=== PATIENT | female | born 1940 | race Caucasian/White ===

== ENCOUNTER 2018-06-27 09:25 | Emergency (ER) | payer MEDICARE, BC ==
[2018-06-27 11:15] VITALS: BP 118/64
--- NOTE | 2018-06-27 11:32 | UC ---
HPI Wound/Suture Re-check - HPI Summary HPI Summary: abrasion left lower leg x 3 days ago here for dressing change, mild erythema, swelling mild bleeding, no discharge, no significant pain - History Of Current Complaint Chief Complaint: UCWounds Stated Complaint: DRESSING CHANGE - DONE HERE Time Seen by Provider: 06/27/18 11:16 Hx Obtained From: Patient Hx Last Menstrual Period: n/a Onset/Duration: Sudden Onset, Lasting Days - 3, Still Present Severity: Moderate Pain Intensity: 0 - Allergies/Home Medications Allergies/Adverse Reactions: Allergies Allergy/AdvReac Type Severity Reaction Status Date / Time walnut AdvReac Rash Verified 06/27/18 11:07 Home Medications: Home Medications Melatonin 10 mg PO BEDTIME 06/27/18 [History Confirmed 06/27/18] PMH/Surg Hx/FS Hx/Imm Hx - Additional Past Medical History Additional PMH: Parkinson's; rib fx [ End ] Endocrine History: Hypothyroidism Cardiovascular History: Cardiac Disease, Hypertension - Surgical History Surgical History: Yes Surgery Procedure, Year, and Place: tubal ligation, b/l cataracts. tonsillectomy; cardiac stent. vaginal hysterectomy 01/24/15 [facility]. trigger finger 2010 sy[facility] - Family History Known Family History: Positive: Hypertension - Social History Alcohol Use: None Substance Use Type: None Smoking Status (MU): Never Smoked Tobacco - Immunization History Most Recent Tetanus Shot: 2012 Review of Systems All Other Systems Reviewed And Are Negative: Yes Constitutional: Positive: Negative Skin: Positive: Negative Eyes: Positive: Negative ENT: Positive: Negative Respiratory: Positive: Negative Cardiovascular: Positive: Negative Is Patient Immunocompromised?: No Physical Exam Triage Information Reviewed: Yes Appearance: No Pain Distress, Well-Nourished, Other: - parkinson's movements Vital Signs: Initial Vital Signs Temp 97 F 06/27/18 11:11 Pulse 85 06/27/18 11:11 Resp 20 06/27/18 11:11 BP 118/64 06/27/18 11:11 Pulse Ox 96 06/27/18 11:11 Vital Signs Reviewed: Yes Eye Exam: Normal Eyes: Positive: Conjunctiva Clear ENT: Positive: Normal ENT inspection, Hearing grossly normal, Pharynx normal Neck: Positive: Supple, Nontender, No Lymphadenopathy Respiratory: Positive: Chest non-tender, Lungs clear, Normal breath sounds Cardiovascular: Positive: RRR, No Murmur, Pulses Normal Skin: Positive: Other - large abrasion left lower leg linear 10 cm x 2 cm , minimal bleeding, mild swelling, mild erythema, dressing was changed Course/Dx - Diagnosis Provider Diagnosis: Abrasion, leg w/o infection Discharge - Sign-Out/Discharge Documenting (check all that apply): Patient Departure All imaging exams completed and their final reports reviewed: No Studies - Discharge Plan Condition: Stable Disposition: HOME Prescriptions: Amoxicillin/Clavulanate TAB* [Augmentin TAB 875*] 875 mg PO BID #14 tab Patient Education Materials: Acute Wound Care (ED) Referrals: Alen Berumen DO [Primary Care Provider] - 7 Days - Billing Disposition and Condition Condition: STABLE Disposition: Home
== END 2018-06-27 11:32 | disposition home or self-care (01) ==
LOC: UCCORT 09:25
DX: S80.812D Abrasion, left lower leg, subsequent encounter (principal); G20 Parkinson's disease; I10 Essential (primary) hypertension; Z91.018 Allergy to other foods; X58.XXXD Exposure to other specified factors, subsequent encounter
CPT/HCPCS: 99212; G0463

== ENCOUNTER 2018-09-29 20:23 | Emergency (ER) | payer MEDICARE, BC ==
--- OUTSIDE RECORDS SUMMARY | 2018-09-29 20:33 | XMS REPORT | Continuity of Care Document ---
:1940 External Reference #:[id number] Author Name Rere Finch Care Team Providers Name Role Phone Alen Berumen, Care Team Information [employer] Unavailable Alen Berumen DO Primary Care Physician Unavailable Payers Date Identification Numbers Payment Provider Subscriber Policy Number: [id number] Medicare Maria Esther Love PayID: [id number] [address] [place] [address] Effective: 2013 Policy Number: [id number] [facility] Maria Esther Love Group Number: [id number] [address] [address] PayID: [id number] LEONILA Meyer [id number] Effective: 2006 Policy Number: [id number] Medicare Maria Esther Love Expires: 2018 PayID: [id number] [address] [place] [address] Advance Directives Description No Information Available Problems Active Problems Provider Date Coronary arteriosclerosis Benitez Christenesn MD Onset: 04/09/2014 Coronary arteriosclerosis Marti Griffin ANP Onset: 08/07/2014 Chest pain Marti Griffin, ANP Onset: 08/07/2014 Low blood pressure Marti Griffin, ANP Onset: 08/07/2014 Mixed hyperlipidemia Marti Griffin, ANP Onset: 08/07/2014 Essential tremor Marti Griffin ANP Onset: 08/25/2014 Low back pain Consuelo Guzman MD Onset: 09/13/2014 Parkinson's disease Consuelo Guzman MD Onset: 09/13/2014 Walking disability Consuelo Guzman MD Onset: 09/13/2014 Dyspnea Marti Griffin ANP Onset: 10/16/2014 Sleep dysfunction with sleep stage disturbance Marti Griffin ANP Onset: Family History Date Family Member(s) Observation Comments General Cancer General Heart Disease Father Oral Cancer Mother Cancer LEUKEMIA Maternal Aunts Tremors Social History Type Date Description Comments Sex Unknown Education Highest level completed, Bachelor's Degree Marital Status Lives With Spouse Diet Healthy, Well Balanced 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 Slow with all ADL's ADL's/IADL's Independent with all IADL's Drive Patient drives Tobacco Use Start: Unknown Never Smoked Cigarettes ETOH Use Denies alcohol use Tobacco Use Start: Unknown Patient denies history of smoking Recreational Drug Use Never Used Drugs Smoking Status Reviewed: 09/11/18 Patient denies history of smoking Allergies, Adverse Reactions, Alerts Description No Known Drug Allergies Medications Active Medications SIG Qnty Indications Ordering Provider Date Atorvastatin Calcium take 1 tablet at 90tabs Gabriella Beyer 05/04/2018 40mg bedtime Donato, MSN, Tablets 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 Amlodipine Besylate take 1 tablet by 30tabs Benitez Christensen MD 12/02/2015 2.5mg mouth once daily Tablets Sertraline HCL 1 by mouth every 30tabs Unknown 100mg day Tablets Aspirin Ec 1 po qd Unknown 81mg Tablets DR Torres 1 tab sl every 5 25tabs Benitez Christensen MD 0.4mg Tablets min x3 chest Sub pain Rytary 10 po daily Unknown 48.75-195mg Capsules ER Omeprazole 1 by mouth every Unknown 20mg Capsules day DR Gee 3 by mouth every Unknown 23.75-95mg day Capsules ER Wixela Inhub inhale one puff Unknown by mouth twice a 100-50mcg/Dose Aerosol day rinse mouth after use Melatonin ER 1at bedtime and Unknown 10mg Tablets take 2nd 30mins ER later if needed Gabapentin 1 PO bid Unknown 100mg Capsules History Medications Lipitor 1 by mouth 90tabs Beyer, Gabriella 05/06/2017 - 40mg Tablets every night at [facility], 05/04/2018 bedtime 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 Plavix 1 by mouth 30tabs Benitez Christensen MD 12/10/2015 - 75mg Tablets every day 01/01/2016 Nitro-Dur apply one to 30units Benitez Christensen MD 11/25/2015 - 0.2mg/HR skin every in 12/02/2015 Patches 24HR the morning remove every at night (12 hrs on, 12 hrs off) Prilosec 1 by mouth 60caps R07.9 Benitez Christensen MD 03/19/2015 - 20mg Capsules DR twice a day Unknown Spiriva Handihaler one puff daily 1caps 496 Benitez Christensen MD 10/29/2014 - 18mcg Unknown Capsules Omeprazole 1 by mouth 30caps 786.50 Benitez Christensen MD 08/06/2014 - 20mg Capsules every day Unknown Toprol XL 1 tab p.o. 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 Advair Diskus inhale one Unknown - puff by mouth Unknown 100-50mcg/Dose Aerosol twice a day Amantadine HCL 1 by mouth bid Unknown - 100mg Unknown Tablets Pramipexole one half pill Unknown - Dihydrochloride a day Unknown 1mg Tablets Atorvastatin Calcium 1 by mouth Unknown - 40mg every day Unknown Tablets Carbidopa-Levodopa ER 1-4 by mouth Unknown - daily Unknown 25-100mg Tablets ER Immunizations Description No Information Available Vital Signs Date Vital Result Comment 09/11/2018 1:14pm BP Systolic Sitting Right Arm 118 mmHg BP Diastolic Sitting Right Arm 66 mmHg Heart Rate 67 /min Respiratory Rate 16 /min Height 62 inches 5'2" Weight 123.00 lb BMI (Body Mass Index) 22.5 kg/m2 BSA (Body Surface Area) 1.55 m2 [place] body weight in kilograms 50 kg O2 % BldC Oximetry 93 % Ra 03/10/2018 1:07pm BP Systolic Sitting Left Arm 130 mmHg BP Diastolic Sitting Left Arm 82 mmHg Heart Rate 95 /min Respiratory Rate 18 /min Height 62 inches 5'2" Weight 121.00 lb BMI (Body Mass Index) 22.1 kg/m2 BSA (Body Surface Area) 1.54 m2 [place] body weight in kilograms 50 kg O2 % BldC Oximetry 91 % Ora 09/06/2017 1:20pm BP Systolic Sitting Left Arm 110 mmHg BP Diastolic Sitting Left Arm 64 mmHg Heart Rate 95 /min Respiratory Rate 18 /min Height 62 inches 5'2" Weight 115.00 lb BMI (Body Mass Index) 21.0 kg/m2 BSA (Body Surface Area) 1.51 m2 [place] body weight in kilograms 50 kg 03/09/2017 1:50pm BP Systolic Sitting Left Arm 118 mmHg BP Diastolic Sitting Left Arm 68 mmHg Heart Rate 82 /min Respiratory Rate 18 /min Height 62 inches 5'2" Weight 112.00 lb BMI (Body Mass Index) 20.5 kg/m2 BSA (Body Surface Area) 1.49 m2 [place] body weight in kilograms 50 kg 11/03/2016 9:23am BP Systolic Sitting Left Arm 110 mmHg BP Diastolic Sitting Left Arm 68 mmHg Heart Rate 80 /min Respiratory Rate 16 /min Height 62 inches 5'2" Weight 116.00 lb BMI (Body Mass Index) 21.2 kg/m2 BSA (Body Surface Area) 1.52 m2 [place] body weight in kilograms 50 kg 04/13/2016 9:54am BP Systolic Sitting Right Arm 126 mmHg BP Diastolic Sitting Right Arm 78 mmHg Heart Rate 90 /min Respiratory Rate 16 /min Weight 123.00 lb 01/01/2016 11:10am BP Systolic Sitting Left Arm 112 mmHg BP Diastolic Sitting Left Arm 68 mmHg Heart Rate 80 /min Respiratory Rate 16 /min Weight 120.00 lb 12/10/2015 4:32pm BP Systolic 152 mmHg BP Diastolic 82 mmHg Heart Rate 80 /min Respiratory Rate 16 /min Weight 119.38 lb 11/25/2015 3:08pm BP Systolic Lying Down Resting Right Arm 150 mmHg BP Diastolic Lying Down Resting Right Arm 88 mmHg Heart Rate 68 /min Height 63 inches 5'3" Weight 121.00 lb BMI (Body Mass Index) 21.4 kg/m2 BSA (Body Surface Area) 1.56 m2 [place] body weight in kilograms 52 kg 11/14/2015 9:47am BP Systolic Sitting Left Arm 122 mmHg BP Diastolic Sitting Left Arm 76 mmHg Heart Rate 75 /min Height 63 inches 5'3" Weight 123.00 lb BMI (Body Mass Index) 21.8 kg/m2 BSA (Body Surface Area) 1.57 m2 [place] body weight in kilograms 52 kg 05/15/2015 11:01am BP Systolic Sitting Left Arm 118 mmHg BP Diastolic Sitting Left Arm 64 mmHg Heart Rate 69 /min Height 63 inches 5'3" Weight 121.00 lb BMI (Body Mass Index) 21.4 kg/m2 BSA (Body Surface Area) 1.56 m2 03/19/2015 2:12pm BP Systolic Sitting Left Arm 130 mmHg BP Diastolic Sitting Left Arm 62 mmHg Heart Rate 88 /min Respiratory Rate 16 /min Height 63 inches 5'3" Weight 121.00 lb BMI (Body Mass Index) 21.4 kg/m2 BSA (Body Surface Area) 1.56 m2 11/20/2014 2:36pm BP Systolic Sitting Left Arm 122 mmHg BP Diastolic Sitting Left Arm 62 mmHg Heart Rate 100 /min Respiratory Rate 14 /min Height 63 inches 5'3" Weight 120.00 lb BMI (Body Mass Index) 21.3 kg/m2 BSA (Body Surface Area) 1.56 m2 10/29/2014 2:10pm BP Systolic Sitting Right Arm 108 mmHg BP Diastolic Sitting Right Arm 70 mmHg Heart Rate 80 /min Respiratory Rate 16 /min Height 63 inches 5'3" Weight 121.00 lb BMI (Body Mass Index) 21.4 kg/m2 BSA (Body Surface Area) 1.56 m2 10/15/2014 1:27pm BP Systolic Sitting Left Arm 110 mmHg BP Diastolic Sitting Left Arm 58 mmHg Heart Rate 80 /min Respiratory Rate 14 /min Height 63 inches 5'3" Weight 119.00 lb BMI (Body Mass Index) 21.1 kg/m2 BSA (Body Surface Area) 1.55 m2 08/23/2014 1:15pm BP Systolic Sitting Left Arm 118 mmHg BP Diastolic Sitting Left Arm 70 mmHg Heart Rate 76 /min Respiratory Rate 16 /min Height 63 inches 5'3" Weight 123.00 lb BMI (Body Mass Index) 21.8 kg/m2 BSA (Body Surface Area) 1.57 m2 08/09/2014 11:21am BP Systolic Sitting Right Arm 132 mmHg BP Diastolic Sitting Right Arm 72 mmHg Heart Rate 82 /min Respiratory Rate 16 /min Height 63 inches 5'3" Weight 123.00 lb BMI (Body Mass Index) 21.8 kg/m2 BSA (Body Surface Area) 1.57 m2 08/06/2014 2:41pm BP Systolic Sitting Right Arm 130 mmHg BP Diastolic Sitting Right Arm 76 mmHg Heart Rate 84 /min Respiratory Rate 16 /min Height 63 inches 5'3" Weight 124.00 lb BMI (Body Mass Index) 22.0 kg/m2 BSA (Body Surface Area) 1.58 m2 06/04/2014 1:48pm BP Systolic Sitting Right Arm 90 mmHg BP Diastolic Sitting Right Arm 40 mmHg Heart Rate 75 /min Respiratory Rate 22 /min Height 63 inches 5'3" Weight 123.00 lb BMI (Body Mass Index) 21.8 kg/m2 BSA (Body Surface Area) 1.57 m2 04/09/2014 9:59am Heart Rate 78 /min Respiratory Rate 16 /min Height 63 inches 5'3" Weight 121.00 lb BMI (Body Mass Index) 21.4 kg/m2 BSA (Body Surface Area) 1.56 m2 01/08/2014 1:20pm BP Systolic Sitting Right Arm 102 mmHg BP Diastolic Sitting Right Arm 58 mmHg Heart Rate 79 /min Respiratory Rate 16 /min Height 63 inches 5'3" Weight 123.00 lb BMI (Body Mass Index) 21.8 kg/m2 BSA (Body Surface Area) 1.57 m2 Results Test Date Facility Test Result H/L Range Note Order 09/12/2018 [facility] <pending> [facility] [id number])- - Laboratory test finding 12/21/2017 N2N/CCD Import Alt 5 U/L 3-42 Ast 11 U/L 8-42 Chol/ HDL Ratio 2.2 ratio Low 3.7-5.6 Cholesterol 150 mg/dL 50-199 HDL 68 mg/dL 35-85 1 LDL (Calc) 67 mg/dL 20-99 2 TSH 4.46 uIU/mL 0.35-4.94 Triglycerides 78 mg/dL 30-200 VLDL 16 mg/dL 2-29 Basic (BMP) 12/21/2017 N2N/CCD Import Zamzam Egfr >60 >60 3 Anion Gap 12 mmol/L 5-15 4 BUN 21 mg/dL 6-26 Calcium 8.9 mg/dL 8.5-10.2 Carbon Dioxide 24 mmol/L 24-34 Chloride# 105 mmol/L 97-110 5 Creatinine 0.6 mg/dL 0.5-1.4 Glucose 99 mg/dL 70-105 Non Zam[place]am Egfr >60 >60 6 Potassium 4.3 mmol/L 3.5-5.2 Sodium 141 mmol/L 135-146 7 CBC With Auto Diff 12/21/2017 N2N/CCD Import Abs Basophils 0.0 K/uL 0.0- 0.3 Abs Eosinophils 0.1 K/uL 0.0-0.5 Abs Lymphocytes 1.5 K/uL 0.8-5.5 Abs Monocytes 0.5 K/uL 0.1-1.0 Abs Neutrophils 2.5 K/uL 2.1-8.0 Basophil 0.7 % 0.0-4.0 Eosinophil 3.0 % 0.0-5.0 Hematocrit 39.4 % 36.0-47.0 Hemoglobin 13.0 gm/dL 12.0-16.0 Lymphocyte 32.3 % 16.0-52.0 MCH 29.6 pg 27.0-32.0 MCHC 33.0 g/dL 32.0-36.0 MCV 89.7 fL 80.0-97.0 MPV 8.4 FL 7.1-10.7 Monocyte 10.5 % High 2.0-10.0 Neutrophil 53.5 % 35.0-75.0 PLT Count 217 K/ul 140-400 RBC 4.40 M/uL 4.00-5.40 RDW 13.8 % 11.5-14.5 WBC 4.8 K/uL 4.1-11.0 Poct troponin 05/27/2017 N2N/CCD Import Poc Troponin I <0.02 0.00 - 0.10 ng/mL CBC w/ diff 05/27/2017 N2N/CCD Import Basophils 0.0 10*3/uL 0.0 - 0.2 Absolute Basophils Relative 0.3 % 0.0 - 4.0 Eosinophils Absolute 0.0 10*3/uL 0.0 - 0.5 Eosinophils Relative 0.4 % 0.0 - 5.0 Hematocrit 38.5 % 36.0 - 47.0 Hemoglobin 12.8 g/dL 12.0 - 16.0 Lymphocytes Absolute 0.5 10*3/uL Low 1.2 - 4.8 Lymphocytes Relative 4.4 % Low 16.0 - 52.0 MCH 29.8 pg 27.0 - 32.0 MCHC 33.2 g/dL 32.0 - 36.0 MCV 89.8 fL 80.0 - 95.0 MPV 8.5 fL 7.1 - 10.7 Monocytes Absolute 0.8 10*3/uL 0.0 - 0.8 Monocytes Relative 6.8 % 0.0 - 8.0 Neutrophils % 88.1 % High 35.0 - 75.0 Neutrophils Absolute 10.8 10*3/uL High 1.8 - 7.7 Platelets 189 10*3/uL 150 - 450 RBC 4.29 10*6/uL 4.00 - 5.40 RDW 14.2 % 10.5 - 14.5 WBC 12.3 10*3/uL High 4.1 - 11.0 Comprehensive metabolic 05/27/2017 N2N/CCD Import Alb/Glob ratio 1.1 Ratio panel Albumin 3.5 g/dL 3.2 - 4.5 Alkaline Phosphatase 108 U/L 45 - 117 Alt 12 U/L 12 - 78 Anion Gap 9 mmol/L 7 - 16 Ast 12 U/L 11 - 39 BUN/Creatinine Ratio 44.9 Ratio High 10.0 - 20.0 Bilirubin, Total 0.5 mg/dL 0.0 - 1.0 Calcium 9.2 mg/dL 8.4 - 10.2 Chloride 102 mmol/L 100 - 108 Co2 28 mmol/L 22 - 31 Creatinine 0.49 mg/dL Low 0.60 - 1.00 GFR MDRD Af Amer >60 >59 ml/min/1.73m2 GFR MDRD Non Af Amer >60 >59 ml/min/1.73m2 Globulin 3.2 g/dL 2.7 - 4.3 Glom Filt Rate, Est See Notes Glucose 118 mg/dL High 70 - 99 Potassium 3.8 mmol/L 3.6 - 5.2 Protein, Total 6.7 g/dL 6.4 - 8.2 Sodium 139 mmol/L 136 - 145 Urea nitrogen 22 mg/dL 7 - 24 Magnesium 05/27/2017 N2N/CCD Import Magnesium 2.0 mg/dL 1.7 - 2.4 Protime-Inr 05/27/2017 N2N/CCD Import Inr 0.99 1 Protime 10.2 s 9.2 - 11.9 aPTT 05/27/2017 N2N/CCD Import aPTT 26.0 s 22.0 - 32.6 Tissue Pathology 12/31/2016 Off Site Lab Pathology/Ema melanoma, Skin For Derm gical Tissue pos mn Laboratory test 12/14/2016 N2N/CCD Import Alt 2 U/L Low 3-42 finding Ast 11 U/L 8-42 Chol/ HDL Ratio 2.0 ratio Low 3.7-5.6 Cholesterol 128 mg/dL 50-199 8 HDL 63 mg/dL 35-85 LDL (Calc) 52 mg/dL 20-99 TSH 3.69 uIU/mL 0.35-4.94 Triglycerides 66 mg/dL 30-200 9 VLDL 13 mg/dL 2-29 Basic (BMP) 12/14/2016 N2N/CCD Import Anion Gap 10 mmol/L 7-16 BUN 24 mg/dL 6-26 Calcium 8.8 mg/dL 8.5-10.2 Carbon Dioxide 28 mmol/L 24-34 10 Chloride# 104 mmol/L 97-110 11 Creatinine 0.7 mg/dL 0.5-1.4 Glucose 100 mg/dL 70-105 12 Potassium 4.7 mmol/L 3.5-5.2 13 Sodium 142 mmol/L 135-146 14 CBC With Auto Diff 12/14/2016 N2N/CCD Import Abs Basophils 0.0 K/uL 0.0- 0.3 Abs Eosinophils 0.1 K/uL 0.0-0.5 Abs Lymphocytes 1.6 K/uL 0.8-5.5 Abs Monocytes 0.6 K/uL 0.1-1.0 Abs Neutrophils 3.7 K/uL 2.1-8.0 Basophil 0.5 % 0.0-4.0 Eosinophil 1.4 % 0.0-5.0 Hematocrit 37.9 % 36.0-47.0 Hemoglobin 12.3 gm/dL 12.0-16.0 Lymphocyte 27.1 % 16.0-52.0 MCH 29.7 pg 27.0-32.0 MCHC 32.5 g/dL 32.0-36.0 MCV 91.2 fL 80.0-97.0 Monocyte 9.6 % 2.0-10.0 Neutrophil 61.4 % 35.0-75.0 PLT Count 222 K/ul 140-400 RBC 4.15 M/uL 4.00-5.40 RDW 13.7 % 11.5-14.5 WBC 6.0 K/uL 4.1-11.0 CBS W/Automated 11/03/2016 [facility] White Blood 5.2 K/uL N 3.1-10.7 [address] [place] [address] [phone] Red Blood Count 4.00 M/uL N 3.90-5.40 Hemoglobin 11.7 gm/dL N 11.6-15.8 Hematocrit 37.1 % N 36.0-46.1 Mean Cell Volume 92.8 fl N 80.9-99.0 Mean Corpuscular HGB 29.3 pg N 25.9-32.7 Mean Corpuscular HGB Conc 31.5 g/dL N 30.8-34.3 Platelet Count 204 K/uL N 150-400 Red Cell Distri Width SD 45.4 fl N 3-47 Red Cell Distri Width %CV 13.6 % N 11.7-14.4 Mean Platelet Volume 10.0 fL N 8.9-12.4 Neut% 61.9 % N 40.4-72.8 Lymph % 24.9 % N 20.0-42.0 [place] % 10.9 % N 4.3-13.2 Eo% 1.9 % N 0.0-6.6 Bas% 0.4 % N 0.0-1.1 Neut# 3.24 K/uL N 1.8-7.0 Lymph # 1.30 K/uL N 1.0-4.0 [place] # 0.57 K/uL N 0.3-0.9 Eos # 0.10 K/uL N 0.0-0.5 Baso # 0.02 K/uL N 0.0-0.1 Comprehensive Metabolic 11/03/2016 [facility] Glucose 94 mg/dL N 74-106 Panel [address] [place] [address] [phone] BUN 23 mg/dL High 7-18 Creatinine 0.5 mg/dL Low 0.6-1.3 Glom Filtration Rate, Estimate >60 mL/min >60 If >60 mL/min >60 16 BUN/Creat 46.0 ratio Sodium 141 mmol/L N 136-145 Potassium 4.4 mmol/L N 3.5-5.1 Chloride 105 mmol/L N 98-107 Carbon Dioxide 29 mmol/L N 21-32 Anion Gap 7 mEq/L Low 8-16 Calcium 8.7 mg/dL N 8.5-10.1 Total Protein 7.0 g/dL N 6.4-8.2 Albumin 3.4 g/dL N 3.4-5.0 Globulin 3.6 g/dL N 1.9-4.3 Alb/Glob 0.9 ratio Bilirubin,Total 0.5 mg/dL N 0.2-1.0 Sgot/Ast 18 U/L N 15-37 SGPT/Alt 11 U/L Low 12-78 17 Alkaline Phosphatase 129 U/L High 45-117 Reflex add FT3? Y Reflex add FT4? Y LDL Cholesterol Profile 11/03/2016 [facility] Cholesterol 128 mg/dL <200 18 [address] [place], [place] [id number] [phone] Triglycerides 77 mg/dL <150 19 HDL Cholesterol 74 mg/dL >40 20 LDL-Cholesterol 39 mg/dL < 100 21 Reflex add FT3? Y Reflex add FT4? Y Magnesium 11/03/2016 [facility] Magnesium 2.2 mg/dL N 1.8-2.4 [address] [place] [address] [phone] Reflex add FT3? Y Reflex add FT4? Y TSH Reflex FT4 11/03/2016 [facility] Thyroid Stim 3.42 uIU/mL N 0.30-4.20 And/Or FT3 [address] [place] [address] [phone] Reflex add FT3? Y Reflex add FT4? Y Laboratory test 11/03/2016 [facility] Vitamin 30.0 30.0-100.0 [address] D,25-Hydroxy ng/[place] [address] [phone] Comprehensive 12/15/2015 [facility] Glucose 111 High 74-106 Metabolic Panel [address] mg/[place] [address] [phone] BUN 24 mg/dL High 7-18 Creatinine 0.6 mg/dL 0.6-1.3 Glom Filtration Rate, Estimate >60 mL/min >60 If >60 mL/min >60 23 BUN/Creat 40.0 ratio Sodium 139 mmol/L 136-145 Potassium 4.3 mmol/L 3.5-5.1 Chloride 105 mmol/L 98-107 Carbon Dioxide 27 mmol/L 21-32 Anion Gap 7 mEq/L Low 8-16 Calcium 8.6 mg/dL 8.5-10.1 Total Protein 7.5 g/dL 6.4-8.2 Albumin 3.8 g/dL 3.4-5.0 Globulin 3.7 g/dL 1.9-4.3 Alb/Glob 1.0 ratio Bilirubin,Total 0.4 mg/dL 0.2-1.0 Sgot/Ast 19 U/L 15-37 SGPT/Alt 17 U/L 12-78 Alkaline Phosphatase 123 U/L High 45-117 Laboratory test finding 12/15/2015 [facility] CK 252 U/L High 26-[address] [place], [place] [id number] [phone] Troponin-I < 0.015 ng/mL 24 CBC W/Automated Diff 12/15/2015 [facility] White Blood 5.1 K/uL 3.1-10.[address] [place] [address] [phone] Red Blood Count 4.30 M/uL 3.90-5.40 Hemoglobin 13.0 gm/dL 11.6-15.8 Hematocrit 39.5 % 36.0-46.1 Mean Cell Volume 91.9 fl 80.9-99.0 Mean Corpuscular HGB 30.2 pg 25.9-32.7 Mean Corpuscular HGB Conc 32.9 g/dL 30.8-34.3 Platelet Count 203 K/uL 155-360 Red Cell Distri Width SD 44.0 fl 3-47 Red Cell Distri Width %CV 13.3 % 11.7-14.4 Mean Platelet Volume 10.0 fL 8.9-12.4 Neut% 64.0 % 40.4-72.8 Lymph % 22.1 % 17.0-46.1 [place] % 11.5 % 4.3-13.2 Eo% 2.0 % 0.0-6.6 Bas% 0.4 % 0.0-1.1 Neut# 3.28 K/uL 1.8-7.0 Lymph # 1.13 K/uL Low 1.8-7.0 [place] # 0.59 K/uL 0.3-0.9 Eos # 0.10 K/uL 0.0-0.5 Baso # 0.02 K/uL 0.0-0.1 Laboratory test 12/15/2015 [facility] D-Dimer, 0.61 ug/mL [address] Quantitative [place], [place] [id number] [phone] Protime 12/10/2015 [facility] Protime 13.0 seconds 12.0- [address] 14.4 [place], [place] [id number] [phone] Inr 1.0 0.9-1.1 26 Laboratory test 12/10/2015 [facility] Act Partial 29.8 23.4-35.0 [address] [place] [address] Time [phone] Comprehensive 12/10/2015 [facility] Glucose 76 mg/dL 74-106 Metabolic Panel [address] [place], [place] [address] [phone] BUN 24 mg/dL High 7-18 Creatinine 0.8 mg/dL 0.6-1.3 Glom Filtration Rate, Estimate >60 mL/min >60 If >60 mL/min >60 28 BUN/Creat 30.0 ratio Sodium 145 mmol/L 136-145 Potassium 4.2 mmol/L 3.5-5.1 Chloride 110 mmol/L High 98-107 Carbon Dioxide 29 mmol/L 21-32 Anion Gap 6 mEq/L Low 8-16 Calcium 8.2 mg/dL Low 8.5-10.1 Total Protein 7.2 g/dL 6.4-8.2 Albumin 3.5 g/dL 3.4-5.0 Globulin 3.7 g/dL 1.9-4.3 Alb/Glob 0.9 ratio Bilirubin,Total 0.4 mg/dL 0.2-1.0 Sgot/Ast 13 U/L Low 15-37 29 SGPT/Alt 11 U/L Low 12-78 30 Alkaline Phosphatase 111 U/L 45-117 LDL Cholesterol Profile 12/10/2015 [facility] Cholesterol 135 mg/dL <200 31 [address] [place] [address] [phone] Triglycerides 113 mg/dL <150 32 HDL Cholesterol 55 mg/dL >40 33 LDL-Cholesterol 57 mg/dL < 100 34 CBC W/Automated Diff 12/10/2015 [facility] White Blood 5.8 K/uL 3.1-10.[address] [place] [address] [phone] Red Blood Count 4.16 M/uL 3.90-5.40 Hemoglobin 12.4 gm/dL 11.6-15.8 Hematocrit 39.0 % 36.0-46.1 Mean Cell Volume 93.8 fl 80.9-99.0 Mean Corpuscular HGB 29.8 pg 25.9-32.7 Mean Corpuscular HGB Conc 31.8 g/dL 30.8-34.3 Platelet Count 217 K/uL 155-360 Red Cell Distri Width SD 44.5 fl 3-47 Red Cell Distri Width %CV 13.4 % 11.7-14.4 Mean Platelet Volume 10.2 fL 8.9-12.4 Neut% 65.9 % 40.4-72.8 Lymph % 21.5 % 17.0-46.1 [place] % 10.8 % 4.3-13.2 Eo% 1.5 % 0.0-6.6 Bas% 0.3 % 0.0-1.1 Neut# 3.82 K/uL 1.8-7.0 Lymph # 1.25 K/uL Low 1.8-7.0 [place] # 0.63 K/uL 0.3-0.9 Eos # 0.09 K/uL 0.0-0.5 Baso # 0.02 K/uL 0.0-0.1 Basic Metabolic Panel 08/06/2014 [facility] Glucose 123 mg/dL High 74-[address] [place], [place] [id number] [phone] BUN 24 mg/dL High 7-18 Creatinine 0.6 mg/dL 0.6-1.3 Glom Filtration Rate, Estimate >60 mL/min >60 If >60 mL/min >60 35 BUN/Creat 40.0 ratio Sodium 141 mmol/L 136-145 Potassium 4.3 mmol/L 3.5-5.1 Chloride 109 mmol/L High 98-107 Carbon Dioxide 28 mmol/L 21-32 Anion Gap 4 mEq/L Low 8-16 Calcium 8.3 mg/dL Low 8.5-10.1 CBC W/Automated Diff 08/06/2014 [facility] White Blood 5.2 K/uL 3.1-10.[address] Count [place], [place] [address] [phone] Red Blood Count 4.19 M/uL 3.90-5.40 Hemoglobin 12.8 gm/dL 11.6-15.8 Hematocrit 39.6 % 36.0-46.1 Mean Cell Volume 94.5 fl 80.9-99.0 Mean Corpuscular HGB 30.5 pg 25.9-32.7 Mean Corpuscular HGB Conc 32.3 g/dL 30.8-34.3 Platelet Count 193 K/uL 155-360 Red Cell Distri Width SD 44.1 fl 3-47 Red Cell Distri Width %CV 13.1 % 11.7-14.4 Mean Platelet Volume 10.1 fL 8.9-12.4 Neut% 52.9 % 40.4-72.8 Lymph % 34.9 % 17.0-46.1 [place] % 9.9 % 4.3-13.2 Eo% 1.7 % 0.0-6.6 Bas% 0.6 % 0.0-1.1 Neut# 2.73 K/uL 1.0-7.0 Lymph # 1.80 K/uL 1.8-7.0 [place] # 0.51 K/uL 0.3-0.9 Eos # 0.09 K/uL 0.0-0.5 Baso # 0.03 K/uL 0.0-0.1 Protime 08/06/2014 [facility] Protime 12.3 seconds 12.1-14.[address] [place] [address] [phone] Inr 0.9 0.9-1.1 36 Laboratory test 08/06/2014 [facility] Act Partial 28.3 seconds 23.9-34.3 [address] [place] [address] [phone] Troponin-I < 0.015 ng/mL 38 CBS W/Automated Diff 05/06/2014 [facility] White Blood 7.5 K/uL 3.1-10.[address] [place] [address] [phone] Red Blood Count 4.45 M/uL 3.90-5.40 Hemoglobin 13.1 gm/dL 11.6-15.8 Hematocrit 40.8 % 36.0-46.1 Mean Cell Volume 91.7 fl 80.9-99.0 Mean Corpuscular HGB 29.4 pg 25.9-32.7 Mean Corpuscular HGB Conc 32.1 g/dL 30.8-34.3 Platelet Count 219 K/uL 155-360 Red Cell Distri Width SD 42.3 fl 3-47 Red Cell Distri Width %CV 12.9 % 11.7-14.4 Mean Platelet Volume 10.2 fL 8.9-12.4 Neut% 65.8 % 40.4-72.8 Lymph % 24.6 % 17.0-46.1 [place] % 8.5 % 4.3-13.2 Eo% 0.8 % 0.0-6.6 Bas% 0.3 % 0.0-1.1 Neut# 4.91 K/uL 1.0-7.0 Lymph # 1.83 K/uL 0.8-3.4 [place] # 0.63 K/uL 0.3-0.9 Eos # 0.06 K/uL 0.0-0.5 Baso # 0.02 K/uL 0.0-0.1 1 Per NCEP ATP III Guidelines: Results lower than 40 mg/dL are suggestive of increased risk for coronary artery disease. Results > or=to 60 mg/dL are considered a negative risk factor. 2 Per NCEP ATP III Guidelines: Normal Population <130 Patients with medical conditions: CHD/DM Optimal: <100 Borderline high: 130-159 High: 160-189 Very high: >189 3 Concerning GFR Guidelines for Americans: Normal function or mild renal disease, if clinically at risk: >/=60 mL/min Moderately decreased: 30-59 Severely decreased: 15-29 Renal failure: <15 4 Updated Reference Range 5 Updated reference range on new analyzer 6 Concerning GFR Guidelines: Normal function or mild renal disease, if clinically at risk: >/=60 mL/min Moderately decreased: 30-59 Severely decreased: 15-29 Renal failure: <15 Glomerular Filtration Rate (GFR) is estimated based on the MDRD equation, which assumes a steady state for creatinine as recommended by the National Kidney Disease Education Program in conjunction with the National Institutes of Health and the National Kidney Foundation. Clinical conditions in which it may be necessary to measure GFR by using clearance methods include extremes of age and body size, severe malnutrition or obesity, diseases of skeletal muscle, paraplegia or quadriplegia, vegetarian diet, rapidly changing kidney function, and calculation of the dose of potentially toxic drugs that are excreted by the kidneys. 7 Updated reference range on new analyzer 8 Per NCEP ATP III Guidelines: Results lower than 40 mg/dL are suggestive of increased risk for coronary artery disease. Results > or=to 60 mg/dL are considered a negative risk factor. 9 Per NCEP ATP III Guidelines: Normal Population <130 Patients with medical conditions: CHD/DM Optimal: <100 Borderline high: 130-159 High: 160-189 Very high: >189 10 Concerning GFR Guidelines for Americans: Normal function or mild renal disease, if clinically at risk: >/=60 mL/min Moderately decreased: 30-59 Severely decreased: 15-29 Renal failure: <15 11 Concerning GFR Guidelines: Normal function or mild renal disease, if clinically at risk: >/=60 mL/min Moderately decreased: 30-59 Severely decreased: 15-29 Renal failure: <15 Glomerular Filtration Rate (GFR) is estimated based on the MDRD equation, which assumes a steady state for creatinine as recommended by the National Kidney Disease Education Program in conjunction with the National Institutes of Health and the National Kidney Foundation. Clinical conditions in which it may be necessary to measure GFR by using clearance methods include extremes of age and body size, severe malnutrition or obesity, diseases of skeletal muscle, paraplegia or quadriplegia, vegetarian diet, rapidly changing kidney function, and calculation of the dose of potentially toxic drugs that are excreted by the kidneys. 12 Updated reference range on new analyzer 13 Updated reference range on new analyzer 14 Updated reference range on new analyzer 15 I25.10 16 Note: Persistent reduction for 3 months or more in an eGFR <60 mL/min/1.73 m2 defines CKD. Patients with eGFR values >/=60 mL/min/1.73 m2 may also have CKD if evidence of persistent proteinuria is present. The original MDRD equation for estimated GFR is not valid for patients less than 18 years of age. Additional information may be found at www.kdoqi.org. 17 Values below the stated reference ranges of AST and ALT can be seen in normal populations. Clinical correlation is suggested. 18 Reference Guidelines*: Desirable: ........... < 200 mg/dL Borderline High: ..... 200-239 mg/dL High: ................ >=240 mg/dL * The National Cholesterol Education Program (NCEP) 19 Reference Guidelines*: Normal: ............. < 150 mg/dL Borderline High: .... 150-199 mg/dL High: ............... 200-499 mg/dL Very High: .......... > 500 mg/dL * Source: National Cholesterol Education Program (NCEP) 20 Reference Guidelines*: Low HDL: ..... < 40 mg/dL Normal: ..... 40-60 mg/dL Desirable: ... > 60 mg/dL *The National Cholesterol Education Program(NCEP) 21 Reference Guidelines*: Optimal:........... <100 mg/dL Near Optimal....... 100-129 mg/dL Borderline High.... 130-159 mg/dL High............... 160-189 mg/dL Very High.......... >=190 mg/dL * Source: National Cholesterol Education Program (NCEP) 22 Vitamin D deficiency has been defined by the [place] of [employer] and an Endocrine Society practice guideline as a level of serum 25-OH vitamin D less than 20 ng/mL (1,2). The Endocrine Society went on to further define vitamin D insufficiency as a level between 21 and 29 ng/mL (2). 1. IOM ([place] of [employer]). 2010. Dietary reference intakes for calcium and D. [place]: The National Academies Press. 2. Jordan MF, Michael NC, Jensen YOUNGBLOOD, et al. Evaluation, treatment, and prevention of vitamin D deficiency: an Endocrine Society clinical practice guideline. JCEM. 2010; 96(7):1911-30. Performed at: RN - [facility] [address] [id number] Sales Donor Recruitment Representative: Kerline Street MD, Phone: [phone] 23 Note: Persistent reduction for 3 months or more in an eGFR <60 mL/min/1.73 m2 defines CKD. Patients with eGFR values >/=60 mL/min/1.73 m2 may also have CKD if evidence of persistent proteinuria is present. The original MDRD equation for estimated GFR is not valid for patients less than 18 years of age. Additional information may be found at www.kdoqi.org. 24 0.0 - 0.045 ng/mL: Normal 0.046 - 0.5 ng/mL: Suggestive 0.6 - 1.5 ng/mL: Consistent 25 <=0.49 ug/mL - Low likelihood of DIC, DVT or Pulmonary Embolism >0.49 ug/mL - Additional testing should be done to rule out DIC, DVT, or Pulmonary embolism as clinically indicated. ([facility] has established a 97.89% negative predictive value for thrombotic disease when a cutoff value of 0.5 ug/mL is used.) 26 THERAPEUTIC INR RANGE: 2.0 - 3.0 DVT, Pulmonary embolus, prophylaxis against venous thrombosis or systemic embolization in high risk patients. 2.5 - 3.5 Mechanical heart valves 27 QUERY: Anticoagulant Therapy? N QUERY: Date of Last Dose: QUERY: Time of Last Dose: 28 Note: Persistent reduction for 3 months or more in an eGFR <60 mL/min/1.73 m2 defines CKD. Patients with eGFR values >/=60 mL/min/1.73 m2 may also have CKD if evidence of persistent proteinuria is present. The original MDRD equation for estimated GFR is not valid for patients less than 18 years of age. Additional information may be found at www.kdoqi.org. 29 Values below the stated reference ranges of AST and ALT can be seen in normal populations. Clinical correlation is suggested. 30 Values below the stated reference ranges of AST and ALT can be seen in normal populations. Clinical correlation is suggested. 31 Reference Guidelines*: Desirable: ........... < 200 mg/dL Borderline High: ..... 200-239 mg/dL High: ................ >=240 mg/dL * The National Cholesterol Education Program (NCEP) 32 Reference Guidelines*: Normal: ............. < 150 mg/dL Borderline High: .... 150-199 mg/dL High: ............... 200-499 mg/dL Very High: .......... > 500 mg/dL * Source: National Cholesterol Education Program (NCEP) 33 Reference Guidelines*: Low HDL: ..... < 40 mg/dL Normal: ..... 40-60 mg/dL Desirable: ... > 60 mg/dL *The National Cholesterol Education Program(NCEP) 34 Reference Guidelines*: Optimal:........... <100 mg/dL Near Optimal....... 100-129 mg/dL Borderline High.... 130-159 mg/dL High............... 160-189 mg/dL Very High.......... >=190 mg/dL * Source: National Cholesterol Education Program (NCEP) 35 Note: Persistent reduction for 3 months or more in an eGFR <60 mL/min/1.73 m2 defines CKD. Patients with eGFR values >/=60 mL/min/1.73 m2 may also have CKD if evidence of persistent proteinuria is present. The original MDRD equation for estimated GFR is not valid for patients less than 18 years of age. Additional information may be found at www.kdoqi.org. 36 THERAPEUTIC INR RANGE: 2.0 - 3.0 DVT, Pulmonary embolus, prophylaxis against venous thrombosis or systemic embolization in high risk patients. 2.5 - 3.5 Mechanical heart valves 37 QUERY: Anticoagulant Therapy? Y QUERY: Date of Last Dose: 08/05/14 QUERY: Time of Last Dose: 7PM 38 0.0 - 0.045 ng/mL: Normal 0.046 - 0.5 ng/mL: Suggestive 0.6 - 1.5 ng/mL: Consistent Procedures Date Code Description Status 09/11/2018 90474 EKG-Tracing And Report Completed 03/09/2017 06738 EKG-Tracing And Report Completed 01/17/2017 64288 Excise malig lesion, trunk, arms & legs 0.6-2.0 cm Completed 11/20/2015 48035 Stress Test Interpre And Report Only Completed 11/20/2015 01369 Stress Test Physician Super Only Completed 11/20/2015 39758 Stress Test Physician Super Only Completed 11/20/2015 95299 Myocardial Imaging Tomographic Multiple Study AT Rest Or Completed Stress 11/14/2015 95029 EKG-Tracing And Report Completed 05/08/2015 19628 Echocardiogram Complete Completed 08/08/2014 54519 ECHO Transthor[employer] Performance Continuous Completed Electrocardio 08/06/2014 89240 EKG-Tracing And Report Completed 06/04/2014 26860 EKG-Tracing And Report Completed 01/23/2014 74724 Echocardiogram Complete Completed 01/08/2014 51419 EKG-Tracing And Report Completed 12/21/2013 93160 Echocardiogram Complete Completed 03/16/2013 09513 ECHO [employer] Performance Continuous Completed Electrocardio 05/01/2012 84648 ECHO [employer] Performance Continuous Completed Electrocardio 07/04/2007 59760 Stress Test Interpre And Report Only Completed 07/04/2007 45610 Stress Test Physician Super Only Completed 06/20/2007 46774 EKG-Tracing And Report Completed Encounters Type Date Location Provider Dx Diagnosis Office Visit 09/11/2018 Cardiology Office Hortensia Pa I25.119 Aths[facility] heart 1:00p B., PA disease of [place] cor art w unsp ang pctrs I10 Essential (primary) hypertension E78.2 Mixed hyperlipidemia Office Visit 03/10/2018 1:00p Cardiology Office Thierno, I25.119 Athscl heart RASHIDA Uribe disease of [place] cor art w unsp ang pctrs I10 Essential (primary) hypertension E78.2 Mixed hyperlipidemia G20 Parkinson's disease Office Visit 09/06/2017 1:15p Cardiology Office Benitez Christensen, I25.10 Indra heart disease of [place] coronary artery w/o ang pctrs I10 Essential (primary) hypertension E78.2 Mixed hyperlipidemia Office Visit 03/09/2017 1:30p Cardiology Office Benitez Christensen, I25.10 Mairascbreanna heart disease of [place] coronary artery w/o ang pctrs I10 Essential (primary) hypertension E78.2 Mixed hyperlipidemia Office Visit 01/12/2017 3:45p Surgical Office Rose 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 left upper limb, including shoulder Office Visit 11/03/2016 9:20a Cardiology Benitez Christensen [facility] I25.10 [facility] disease of [place] coronary artery w/o ang pctrs I10 Essential (primary) hypertension E78.2 Mixed hyperlipidemia R53.83 Other fatigue Office Visit 04/13/2016 9:40a Cardiology Office Marti Griffin I25.10 Athmnl heart OSWALDO Romero disease of [place] coronary artery w/o ang pctrs I10 Essential (primary) hypertension E78.2 Mixed hyperlipidemia R06.02 Shortness of breath R07.9 Chest pain, unspecified Office Visit 01/01/2016 11:00a Cardiology Office Benitez Christensen, I25.10 Mairamnbreanna heart disease of [place] coronary artery w/o ang pctrs I10 Essential (primary) hypertension E78.2 Mixed hyperlipidemia Office Visit 12/10/2015 2:10p Cardiology Office Benitez Christensen I25.10 Mairamnbreanna heart disease of [place] coronary artery w/o ang pctrs R06.02 Shortness of breath I10 Essential (primary) hypertension E78.2 Mixed hyperlipidemia Office Visit 11/25/2015 3:10p Cardiology Office Benitez Christensen, I25.10 Mairamnbreanna heart disease of [place] coronary artery w/o ang pctrs R06.02 Shortness of breath I10 Essential (primary) hypertension E78.2 Mixed hyperlipidemia Office Visit 11/14/2015 9:40a Cardiology Office Marti Griffin R07.9 Chest pain, A., ANP unspecified I25.10 Athscl heart disease of [place] coronary artery w/o ang pctrs R06.02 Shortness of breath E78.2 Mixed hyperlipidemia Office Visit 05/15/2015 11:00a Cardiology Office Marti Griffin R07.9 Chest pain, A., ANP unspecified I25.10 Athscl heart disease of [place] coronary artery w/o ang pctrs R06.02 Shortness of breath E78.2 Mixed hyperlipidemia I95.9 Hypotension, unspecified Office Visit 05/08/2015 9:51a Cardiology Office Benitez Christensen R07.9 Chest pain, unspecified Office Visit 03/19/2015 2:10p Cardiology Office Benitez Christensen R07.Alexsandra Chest danelle, unspecified I25.10 Athscl heart disease of [place] coronary artery w/o ang pctrs R06.02 Shortness of breath I95.9 Hypotension, unspecified E78.2 Mixed hyperlipidemia Office Visit 11/20/2014 2:30p Cardiology Office Marti Griffin 786.05 Shortness Of A., ANP Breath 414.01 Coronary Atherosclerosis [place] 786.50 Pain Chest Unspec 272.2 Hyperlipidemia Mixed 496 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 Office Visit 11/01/2014 1:39p Cardiology Office Benitez Christensen, 786.50 Pain Chest Unspec Office Visit 11/01/2014 12:31p [facility] Amilcar, 786.50 Pain Chest Medical [place] Flora Patel Unspec Office Visit 10/29/2014 2:00p Cardiology Office Marti Griffin 786.05 Shortness Of A., ANP Breath 414.01 Coronary Atherosclerosis [place] 786.50 Pain Chest Unspec 272.2 Hyperlipidemia Mixed 496 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 Office Visit 10/15/2014 1:20p Cardiology Office Marti Griffin 786.05 Shortness Of A., ANP Breath 307.47 Sleep Stage Or Sleep Arousal Dysfunction Other 414.01 Coronary Atherosclerosis [place] 786.50 Pain Chest Unspec 458.9 Hypotension Unspec 272.2 Hyperlipidemia Mixed Office Visit 09/13/2014 9:30a Orthopaedic Office Consuelo Guzman MD 724.2 Lumbago 332.0 Paralysis Agitans 719.7 Difficulty Walking Office Visit 08/23/2014 Cardiology Marti Griffin 414.01 Coronary 1:10p Office A., OSWALDO Atherosclerosis [place] 786.50 Pain Chest Unspec 458.9 Hypotension Unspec 272.2 Hyperlipidemia Mixed 333.1 Tremor Essential & Other Forms Office Visit 08/09/2014 Cardiology Marti Griffin 414.01 Coronary 11:20a Office A., ANP Atherosclerosis [place] 786.50 Pain Chest Unspec 458.9 Hypotension Unspec 272.2 Hyperlipidemia Mixed 333.1 Tremor Essential & Other Forms Office Visit 08/06/2014 Cardiology Marti Griffin 414.01 Coronary 2:40p Office A., OSWALDO Atherosclerosis [place] 786.50 Pain Chest Unspec 458.9 Hypotension Unspec 272.2 Hyperlipidemia Mixed Office Visit 06/04/2014 Cardiology Benitez Christensen 414.01 Coronary 2:05p Office Atherosclerosis [place] V72.81 Examination Preoperative Cardiovascular Office Visit 04/09/2014 Cardiology Benitez Christensen, 414.00 Coronary 9:35a Office Atherosclerosis Unspec Type Vessel [place]raft Office Visit 02/22/2014 Cardiology Tad 786.50 Pain Chest Unspec 2:38p Office Micah Kumar M.D., [facility] Office Visit 01/08/2014 Cardiology Benitez Christensen, 414.00 Coronary 1:05p Office Atherosclerosis Unspec Type Vessel [place]raft Office Visit 12/21/2013 Cardiology Benitez Christensen 786.50 Pain Chest Unspec 2:14p Office Office Visit 06/21/2008 SHAN Mike 414.00 Coronary 9:15a MD Wayne Atherosclerosis Unspec Type Vessel [place] 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 No changes.I10 Essential (primary) hypertensionComments:Continue present medications. She will try to stay better hydrated and call if symptoms persist/worsen.E78.2 Mixed hyperlipidemiaComments: Will get a copy of the most recent lipids.AllFollow up:6 months
--- OUTSIDE RECORDS SUMMARY | 2018-09-29 20:33 | XMS REPORT | Continuity of Care Document ---
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 Alen Berumen DO Primary Care Physician Unavailable Payers Date Identification Numbers Payment Provider Subscriber Policy Number: [id number] Medicare Maria Esther Love PayID: [id number] [address] [place] [address] Effective: 2013 Policy Number: [id number] [facility] Maria Esther Love Group Number: [id number] [address] [address] PayID: [id number] LEONILA Meyer [id number] Effective: 2006 Policy Number: [id number] Medicare Maria Esther Love Expires: 2018 PayID: [id number] [address] [place] [address] Advance Directives Description No Information Available Problems Active Problems Provider Date Coronary arteriosclerosis Benitez Christensen MD Onset: 04/09/2014 Coronary arteriosclerosis Marti Griffin, ANP Onset: 08/07/2014 Chest pain Marti Griffin, [...] Beyer 05/04/2018 40mg bedtime Donato, MSN, Tablets INSPECTOR TYPE Amlodipine Besylate take 1 tablet by 30tabs [...] every night at [facility], 05/04/2018 bedtime INSPECTOR TYPE Plavix 1 by mouth 30tabs Benitez Christensen [...] 75mg Tablets every day [facility] [place], Unknown INSPECTOR TYPE Metoprolol Tartrate 1/2 qd 180tabs Unknown - 50mg 05/06/2014 Tablets Lipitor 1 by mouth 90tabs Beyer, Gabriella - 40mg Tablets every night at [facility], 01/12/2017 bedtime INSPECTOR TYPE Advair Diskus inhale one Unknown - puff [...] kg/m2 BSA (Body Surface Area) 1.55 m2 [place] body weight in kilograms 50 kg O2 % BldC Oximetry 93 % Ra 03/10/2018 1:07pm BP Systolic Sitting Left Arm 130 mmHg BP Diastolic Sitting Left Arm 82 mmHg Heart Rate 95 /min Respiratory Rate 18 /min Height 62 inches 5'2" Weight 121.00 lb BMI (Body Mass Index) 22.1 kg/m2 BSA (Body Surface Area) 1.54 m2 [place] body weight in kilograms 50 kg O2 % BldC Oximetry 91 % Ora 09/06/2017 1:20pm BP Systolic Sitting Left Arm 110 mmHg BP Diastolic Sitting Left Arm 64 mmHg Heart Rate 95 /min Respiratory Rate 18 /min Height 62 inches 5'2" Weight 115.00 lb BMI (Body Mass Index) 21.0 kg/m2 BSA (Body Surface Area) 1.51 m2 [place] body weight in kilograms 50 kg 03/09/2017 1:50pm BP Systolic Sitting Left Arm 118 mmHg BP Diastolic Sitting Left Arm 68 mmHg Heart Rate 82 /min Respiratory Rate 18 /min Height 62 inches 5'2" Weight 112.00 lb BMI (Body Mass Index) 20.5 kg/m2 BSA (Body Surface Area) 1.49 m2 [place] body weight in kilograms 50 kg 11/03/2016 9:23am BP Systolic Sitting Left Arm 110 mmHg BP Diastolic Sitting Left Arm 68 mmHg Heart Rate 80 /min Respiratory Rate 16 /min Height 62 inches 5'2" Weight 116.00 lb BMI (Body Mass Index) 21.2 kg/m2 BSA (Body Surface Area) 1.52 m2 [place] body weight in kilograms 50 kg 04/13/2016 [...] kg/m2 BSA (Body Surface Area) 1.56 m2 [place] body weight in kilograms 52 kg 11/14/2015 9:47am BP Systolic Sitting Left Arm 122 mmHg BP Diastolic Sitting Left Arm 76 mmHg Heart Rate 75 /min Height 63 inches 5'3" Weight 123.00 lb BMI (Body Mass Index) 21.8 kg/m2 BSA (Body Surface Area) 1.57 m2 [place] body weight in kilograms 52 kg 05/15/2015 [...] Date Facility Test Result H/L Range Note CBC With Auto Diff 12/21/2017 N2N/CCD Import [...] 13.8 % 11.5-14.5 WBC 4.8 K/uL 4.1-11.0 Laboratory test finding 12/21/2017 N2N/CCD Import Alt [...] mmol/L 3.5-5.2 Sodium 141 mmol/L 135-146 7 Poct troponin 05/27/2017 N2N/CCD Import Poc Troponin I <0.02 0.00 - 0.10 ng/mL aPTT 05/27/2017 N2N/CCD Import aPTT 26.0 s 22.0 - 32.6 CBC w/ diff 05/27/2017N/CCD Import Basophils 0.0 10*3/uL 0.0 - 0.2 [...] 1 Protime 10.2 s 9.2 - 11.9 Tissue 12/31/2016 Off Site Lab Pathology/Surgical melanoma, pos Pathology Skin Tissue mn For Derm Laboratory test 12/14/2016 N2N/CCD Import Alt 2 [...] 3.1-10.[address] [place] [address] [phone] Red Blood Count 4.00 M/uL N 3.90-5.40 [...] 40.4-72.8 Lymph % 24.9 % N 20.0-42.0 [place] % 10.9 % N 4.3-13.2 Eo% 1.9 % N 0.0-6.6 Bas% 0.4 % N 0.0-1.1 Neut# 3.24 K/uL N 1.8-7.0 Lymph # 1.30 K/uL N 1.0-4.0 [place] # 0.57 K/uL N 0.3-0.9 Eos # 0.10 K/uL N 0.0-0.5 Baso # 0.02 K/uL N 0.0-0.1 Comprehensive Metabolic 11/03/2016 [facility] Glucose 94 mg/dL N 74-106 Panel [address] [place] [address] [phone] BUN 23 mg/dL High 7-18 Creatinine 0.5 [...] add FT4? Y LDL Cholesterol Profile 11/03/2016 [facility] Cholesterol 128 mg/dL <200 18 [address] [place], [place] [id number] [phone] Triglycerides 77 mg/dL <150 19 HDL Cholesterol 74 mg/dL >40 20 LDL-Cholesterol 39 mg/dL < 100 21 Reflex add FT3? Y Reflex add FT4? Y Magnesium 11/03/2016 [facility] Magnesium 2.2 mg/dL N 1.8-2.4 [address] [place] [address] [phone] Reflex add FT3? Y Reflex add FT4? Y TSH Reflex FT4 11/03/2016 [facility] Thyroid Stim 3.42 uIU/mL N 0.30-4.20 And/Or FT3 [address] [place] [address] [phone] Reflex add FT3? Y Reflex add FT4? Y Laboratory test 11/03/2016 [facility] Vitamin 30.0 30.0-100.0 [address] D,25-Hydroxy ng/[place] [address] [phone] Comprehensive 12/15/2015 [facility] Glucose 111 High 74-106 Metabolic Panel [address] mg/dL [place] [id number] [phone] BUN 24 mg/dL High 7-18 Creatinine 0.6 [...] U/L High 45-117 Laboratory test finding 12/15/2015 [facility] CK 252 U/L High 26-[address] [place] [address] [phone] Troponin-I < 0.015 ng/mL 24 CBC W/Automated Diff 12/15/2015 [facility] White Blood 5.1 K/uL 3.1-10.[address] [place] [address] [phone] Red Blood Count 4.30 M/uL 3.90-5.40 Hemoglobin [...] % 40.4-72.8 Lymph % 22.1 % 17.0-46.1 [place] % 11.5 % 4.3-13.2 Eo% 2.0 % 0.0-6.6 Bas% 0.4 % 0.0-1.1 Neut# 3.28 K/uL 1.8-7.0 Lymph # 1.13 K/uL Low 1.8-7.0 [place] # 0.59 K/uL 0.3-0.9 Eos # 0.10 K/uL 0.0-0.5 Baso # 0.02 K/uL 0.0-0.1 Laboratory test 12/15/2015 [facility] D-Dimer, 0.61 ug/mL [address] [place] [address] [phone] Comprehensive 12/10/2015 [facility] Glucose 76 mg/dL 74-10 Metabolic Panel [address] [place] [address] [phone] BUN 24 mg/dL High 7-18 Creatinine 0.8 mg/dL 0.6-1.3 Glom Filtration Rate, Estimate >60 mL/min >60 If >60 mL/min >60 26 BUN/Creat 30.0 ratio Sodium 145 mmol/L 136-145 Potassium 4.2 mmol/L 3.5-5.1 Chloride 110 mmol/L High 98-107 Carbon Dioxide 29 mmol/L 21-32 Anion Gap 6 mEq/L Low 8-16 Calcium 8.2 mg/dL Low 8.5-10.1 Total Protein 7.2 g/dL 6.4-8.2 Albumin 3.5 g/dL 3.4-5.0 Globulin 3.7 g/dL 1.9-4.3 Alb/Glob 0.9 ratio Bilirubin,Total 0.4 mg/dL 0.2-1.0 Sgot/Ast 13 U/L Low 15-37 27 SGPT/Alt 11 U/L Low 12-78 28 Alkaline Phosphatase 111 U/L 45-117 LDL Cholesterol Profile 12/10/2015 [facility] Cholesterol 135 mg/dL <200 29 [address] [place], [place] [address] [phone] Triglycerides 113 mg/dL <150 30 HDL Cholesterol 55 mg/dL >40 31 LDL-Cholesterol 57 mg/dL < 100 32 CBC W/Automated Diff 12/10/2015 [facility] White Blood 5.8 K/uL 3.1-10.[address] [place] [address] [phone] Red Blood Count 4.16 M/uL 3.90-5.40 Hemoglobin [...] % 40.4-72.8 Lymph % 21.5 % 17.0-46.1 [place] % 10.8 % 4.3-13.2 Eo% 1.5 % 0.0-6.6 Bas% 0.3 % 0.0-1.1 Neut# 3.82 K/uL 1.8-7.0 Lymph # 1.25 K/uL Low 1.8-7.0 [place] # 0.63 K/uL 0.3-0.9 Eos # 0.09 K/uL 0.0-0.5 Baso # 0.02 K/uL 0.0-0.1 Protime 12/10/2015 [facility] Protime 13.0 seconds 12.0-14.4 [address] [place] [address] [phone] Inr 1.0 0.9-1.1 33 Laboratory test 12/10/2015 [facility] Act Partial 29.8 seconds 23.4-35.0 [address] [employer] [place], [place] [address] [phone] Protime 08/06/2014 [facility] Protime 12.3 seconds 12.1-14.[address] [place], [place] [address] [phone] Inr 0.9 0.9-1.1 35 Laboratory test 08/06/2014 [facility] Act Partial 28.3 seconds 23.9-34.3 [address] [employer] [place], [place] [address] [phone] Troponin-I < 0.015 ng/mL 37 CBC W/Automated Diff 08/06/2014 [facility] White Blood 5.2 K/uL 3.1-10.[address] [place], [place] [address] [phone] Red Blood Count 4.19 M/uL 3.90-5.40 Hemoglobin [...] % 40.4-72.8 Lymph % 34.9 % 17.0-46.1 [place] % 9.9 % 4.3-13.2 Eo% 1.7 % 0.0-6.6 Bas% 0.6 % 0.0-1.1 Neut# 2.73 K/uL 1.0-7.0 Lymph # 1.80 K/uL 1.8-7.0 [place] # 0.51 K/uL 0.3-0.9 Eos # 0.09 K/uL 0.0-0.5 Baso # 0.03 K/uL 0.0-0.1 Basic Metabolic Panel 08/06/2014 [facility] Glucose 123 mg/dL High 74-[address] [place], [place] [address] [phone] BUN 24 mg/dL High 7-18 Creatinine 0.6 mg/dL 0.6-1.3 Glom Filtration Rate, Estimate >60 mL/min >60 If >60 mL/min >60 38 BUN/Creat 40.0 ratio Sodium 141 mmol/L 136-145 Potassium 4.3 mmol/L 3.5-5.1 Chloride 109 mmol/L High 98-107 Carbon Dioxide 28 mmol/L 21-32 Anion Gap 4 mEq/L Low 8-16 Calcium 8.3 mg/dL Low 8.5-10.1 CBS W/Automated Diff 05/06/2014 [facility] White Blood 7.5 K/uL 3.1-10.[address] [place] [address] [phone] Red Blood Count 4.45 M/uL 3.90-5.40 Hemoglobin [...] % 40.4-72.8 Lymph % 24.6 % 17.0-46.1 [place] % 8.5 % 4.3-13.2 Eo% 0.8 % 0.0-6.6 Bas% 0.3 % 0.0-1.1 Neut# 4.91 K/uL 1.0-7.0 Lymph # 1.83 K/uL 0.8-3.4 [place] # 0.63 K/uL 0.3-0.9 Eos # 0.06 [...] D deficiency has been defined by the [place] of [employer] and an Endocrine Society practice guideline as a level of serum 25-OH vitamin D less than 20 ng/mL (1,2). The Endocrine Society went on to further define vitamin D insufficiency as a level between 21 and 29 ng/mL (2). 1. IOM ([place] of [employer]). 2010. Dietary reference intakes for calcium and D. [place]: The National Academies Press. 2. Jordan MF, Michael NC, Jensen YOUNGBLOOD, et al. Evaluation, treatment, and prevention of vitamin D deficiency: an Endocrine Society clinical practice guideline. JCEM. 2010; 96(7):1911-30. Performed at: RN - [facility] [address] [id number] Adjunct Business Instructor: Kerline Street MD, Phone: [phone] Note: Persistent reduction for 3 months [...] DVT, or Pulmonary embolism as clinically indicated. ([facility] has established a 97.89% negative predictive value for thrombotic disease when a cutoff value of 0.5 ug/mL is used.) 26 Note: Persistent reduction for 3 months or more in an eGFR <60 mL/min/1.73 m2 defines CKD. Patients with eGFR values >/=60 mL/min/1.73 m2 may also have CKD if evidence of persistent proteinuria is present. The original MDRD equation for estimated GFR is not valid for patients less than 18 years of age. Additional information may be found at www.kdoqi.org. 27 Values below the stated reference ranges of AST and ALT can be seen in normal populations. Clinical correlation is suggested. 28 Values below the stated reference ranges of AST and ALT can be seen in normal populations. Clinical correlation is suggested. 29 Reference Guidelines*: Desirable: ........... < 200 mg/dL Borderline High: ..... 200-239 mg/dL High: ................ >=240 mg/dL * The National Cholesterol Education Program (NCEP) 30 Reference Guidelines*: Normal: ............. < 150 mg/dL Borderline High: .... 150-199 mg/dL High: ............... 200-499 mg/dL Very High: .......... > 500 mg/dL * Source: National Cholesterol Education Program (NCEP) 31 Reference Guidelines*: Low HDL: ..... < 40 mg/dL Normal: ..... 40-60 mg/dL Desirable: ... > 60 mg/dL *The National Cholesterol Education Program(NCEP) 32 Reference Guidelines*: Optimal:........... <100 mg/dL Near Optimal....... 100-129 mg/dL Borderline High.... 130-159 mg/dL High............... 160-189 mg/dL Very High.......... >=190 mg/dL * Source: National Cholesterol Education Program (NCEP) 33 THERAPEUTIC INR RANGE: 2.0 - 3.0 DVT, Pulmonary embolus, prophylaxis against venous thrombosis or systemic embolization in high risk patients. 2.5 - 3.5 Mechanical heart valves 34 QUERY: Anticoagulant Therapy? N QUERY: Date of Last Dose: QUERY: Time of Last Dose: 35 THERAPEUTIC INR RANGE: 2.0 - 3.0 DVT, Pulmonary embolus, prophylaxis against venous thrombosis or systemic embolization in high risk patients. 2.5 - 3.5 Mechanical heart valves 36 QUERY: Anticoagulant Therapy? Y QUERY: Date of Last Dose: 04/06/15 QUERY: Time of Last Dose: 7PM 37 0.0 - 0.045 ng/mL: Normal 0.046 - 0.5 ng/mL: Suggestive 0.6 - 1.5 ng/mL: Consistent 38 Note: Persistent reduction for 3 months or more in an eGFR <60 mL/min/1.73 m2 defines CKD. Patients with eGFR values >/=60 mL/min/1.73 m2 may also have CKD if evidence of persistent proteinuria is present. The original MDRD equation for estimated GFR is not valid for patients less than 18 years of age. Additional information may be found at www.kdoqi.org. Procedures Date Code Description Status 09/11/2018 73305 EKG-Tracing And Report Completed 03/09/2017 69439 EKG-Tracing And Report Completed 01/17/2017 43125 Excise malig lesion, trunk, arms & legs 0.6-2.0 cm Completed 11/20/2015 39600 Stress Test Interpre And Report Only Completed 11/20/2015 50617 Stress Test Physician Super Only Completed 11/20/2015 22591 Stress Test Physician Super Only Completed 11/20/2015 04133 Myocardial Imaging Tomographic Multiple Study AT Rest Or Completed Stress 11/14/2015 87925 EKG-Tracing And Report Completed 05/08/2015 27969 Echocardiogram Complete Completed 08/08/2014 10563 ECHO Transthor[employer] Performance Continuous Completed Electrocardio 08/06/2014 06113 EKG-Tracing And Report Completed 06/04/2014 46995 EKG-Tracing And Report Completed 01/23/2014 76549 Echocardiogram Complete Completed 01/08/2014 42534 EKG-Tracing And Report Completed 12/21/2013 19430 Echocardiogram Complete Completed 03/16/2013 61768 ECHO [employer] Performance Continuous Completed Electrocardio 05/01/2012 06186 ECHO [employer] Performance Continuous Completed Electrocardio 07/04/2007 42048 Stress Test Interpre And Report Only Completed 07/04/2007 59145 Stress Test Physician Super Only Completed 06/20/2007 65273 EKG-Tracing And Report Completed Encounters Type Date Location Provider Dx Diagnosis Office Visit 09/11/2018 Cardiology Office Hortensia Pa I25.119 [facility] heart 1:00p RASHIDA Christie disease of [place] cor art w unsp ang pctrs I10 Essential (primary) hypertension E78.2 Mixed hyperlipidemia Office Visit 03/10/2018 1:00p Cardiology Office Thierno, I25.119 Aths[facility] heart RASHIDA Uribe disease of [place] cor art w unsp ang pctrs I10 Essential (primary) hypertension E78.2 Mixed hyperlipidemia G20 Parkinson's disease Office Visit 09/06/2017 1:15p Cardiology Office Benitez Christensen, I25.10 Indra heart disease of [place] coronary artery w/o ang pctrs I10 Essential (primary) hypertension E78.2 Mixed hyperlipidemia Office Visit 03/09/2017 1:30p Cardiology Office Benitez Christensen, I25.10 Mairaflbreanna heart disease of [place] coronary artery w/o ang pctrs I10 Essential (primary) hypertension E78.2 Mixed hyperlipidemia Office Visit 01/12/2017 3:45p Surgical Office Rose 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 left upper limb, including shoulder Office Visit 11/03/2016 9:20a Cardiology Benitez Christensen MD I25.10 [facility] heart Office disease of [place] coronary artery w/o ang pctrs I10 Essential (primary) hypertension E78.2 Mixed hyperlipidemia R53.83 Other fatigue Office Visit 04/13/2016 9:40a Cardiology Office Marti Griffin I25.10 [facility] heart OSWALDO Romero disease of [place] coronary artery w/o ang pctrs I10 Essential (primary) hypertension E78.2 Mixed hyperlipidemia R06.02 Shortness of breath R07.9 Chest pain, unspecified Office Visit 01/01/2016 11:00a Cardiology Office Benitez Christensen, I25.10 Indra heart disease of [place] coronary artery w/o ang pctrs I10 Essential (primary) hypertension E78.2 Mixed hyperlipidemia Office Visit 12/10/2015 2:10p Cardiology Office Benitez Christensen, I25.10 Indra heart disease of [place] coronary artery w/o ang pctrs R06.02 Shortness of breath I10 Essential (primary) hypertension E78.2 Mixed hyperlipidemia Office Visit 11/25/2015 3:10p Cardiology Office Benitez Christensen, I25.10 Mairaflbreanna heart disease of [place] coronary artery w/o ang pctrs R06.02 Shortness of breath I10 Essential (primary) hypertension E78.2 Mixed hyperlipidemia Office Visit 11/14/2015 9:40a Cardiology Office Marti Griffin R07.9 Chest pain, A., ANP unspecified I25.10 Athscl heart disease of [place] coronary artery w/o ang pctrs R06.02 Shortness of breath E78.2 Mixed hyperlipidemia Office Visit 05/15/2015 11:00a Cardiology Office Marti Griffin R07.9 Chest pain, A., ANP unspecified I25.10 Athscl heart disease of [place] coronary artery w/o ang pctrs R06.02 Shortness of breath E78.2 Mixed hyperlipidemia I95.9 Hypotension, unspecified Office Visit 05/08/2015 9:51a Cardiology Office Benitez Christensen R07.9 Chest pain, MD unspecified Office Visit 03/19/2015 2:10p Cardiology Office Benitez Christensen R07.Alexsandra Chest pain, MD unspecified I25.10 Athscl heart disease of [place] coronary artery w/o ang pctrs R06.02 Shortness of breath I95.9 Hypotension, unspecified E78.2 Mixed hyperlipidemia Office Visit 11/20/2014 2:30p Cardiology Office Marti Griffin 786.05 Shortness Of A., ANP Breath 414.01 Coronary Atherosclerosis [place] 786.50 Pain Chest Unspec 272.2 Hyperlipidemia Mixed 496 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 Office Visit 11/01/2014 1:39p Cardiology Office Benitez Christensen, 786.50 Pain Chest MD Unspec Office Visit 11/01/2014 12:31p [facility] Amilcar, 786.50 [facility] Flora Patel Unspec Office Visit 10/29/2014 2:00p Cardiology Office Marti Griffin 786.05 Shortness Of A., ANP Breath 414.01 Coronary Atherosclerosis [place] 786.50 Pain Chest Unspec 272.2 Hyperlipidemia Mixed 496 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 Office Visit 10/15/2014 1:20p Cardiology Office Marti Griffin 786.05 Shortness Of A., ANP Breath 307.47 Sleep Stage Or Sleep Arousal Dysfunction Other 414.01 Coronary Atherosclerosis [place] 786.50 Pain Chest Unspec 458.9 Hypotension Unspec 272.2 Hyperlipidemia Mixed Office Visit 09/13/2014 9:30a Orthopaedic Office Consuelo Guzman MD 724.2 Lumbago 332.0 Paralysis Agitans 719.7 Difficulty Walking Office Visit 08/23/2014 Cardiology Marti Griffin 414.01 Coronary 1:10p Office A., ANP Atherosclerosis [place] 786.50 Pain Chest Unspec 458.9 Hypotension Unspec 272.2 Hyperlipidemia Mixed 333.1 Tremor Essential & Other Forms Office Visit 08/09/2014 Cardiology Marit Griffin 414.01 Coronary 11:20a Office A., ANP Atherosclerosis [place] 786.50 Pain Chest Unspec 458.9 Hypotension Unspec 272.2 Hyperlipidemia Mixed 333.1 Tremor Essential & Other Forms Office Visit 08/06/2014 Cardiology Marti Griffin 414.01 Coronary 2:40p Office A., ANP Atherosclerosis [place] 786.50 Pain Chest Unspec 458.9 Hypotension Unspec 272.2 Hyperlipidemia Mixed Office Visit 06/04/2014 Cardiology Benitez Christensen 414.01 Coronary 2:05p Office Atherosclerosis [place] V72.81 Examination Preoperative Cardiovascular Office Visit 04/09/2014 Cardiology Benitez Christensen, 414.00 Coronary 9:35a Office Atherosclerosis Unspec Type Vessel [place]/Graft Office Visit 02/22/2014 Cardiology Tad 786.50 Pain Chest Unspec 2:38p Office Micah Kumar M.D., [facility] Office Visit 01/08/2014 Cardiology Benitez Christensen, 414.00 Coronary 1:05p Office Atherosclerosis Unspec Type Vessel [place]/Graft Office Visit 12/21/2013 Cardiology Benitez Christensen 786.50 Pain Chest Unspec 2:14p Office Office Visit 06/21/2008 SHAN Mike 414.00 Coronary 9:15a MD Wayne Atherosclerosis Unspec Type Vessel [place]/Graft 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 No changes.I10 Essential (primary) hypertensionComments:Continue present medications. She will try to stay better hydrated and call if symptoms persist/worsen.E78.2 Mixed hyperlipidemiaComments: Will get a copy of the most recent lipids.AllFollow up:6 months
[2018-09-29 20:41] VITALS: BP 152/91
[2018-09-29] MEDS ORDERED: Cephalexin CAP* 500 MG PO ONE (20:57)
--- NOTE | 2018-09-29 20:57 | UC ---
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 Levine did a left fourth PIP "arthritic knuckle" surgery at [facility] nine days ago. Erythema, increased pain "stings", swelling, and warmth worsening over the last three days. Denies fever. Denies discharge. Feels "good" otherwise, but is anxious when she is at doctor's offices." -here w/ her . -no fevers/chills -redness started today -brace she is wearing is irritating wound. -no dc. no streaks. -she called Dr Levine' office tonioght and was told to be seen. they are aware of their after hours available on the [facility] too. - History of Current Complaint Chief Complaint: UCUpperExtremity Time Seen by Provider: 09/29/18 20:45 Stated Complaint: INFECTED LT MIDDLE FINGER/SP SURGERY Hx Last Menstrual Period: n/a Pain Intensity: 8 - Allergy/Home Medications Allergies/Adverse Reactions: Allergies Allergy/AdvReac Type Severity Reaction Status Date / Time walnut AdvReac Rash Verified 09/29/18 20:37 Home Medications: Home Medications Acetaminophen/Diphenhydramine [Tylenol Pm Ex-Strength Caplet] 1 each PO 0300 PRN 09/29/18 [History Confirmed 09/29/18] Aspirin EC TAB* [Ecotrin EC Low Dose 81 MG*] 81 mg PO QAM 09/29/18 [History Confirmed 09/29/18] Atorvastatin* [Lipitor 40 MG*] 40 mg PO QPM 09/29/18 [History Confirmed 09/29/18 ] Carbidopa/Levodopa 36.25-145mg [Rytary ER 36.25 mg-145 mg Cap] 1 - 3 each PO SEE INSTRUCTIONS 09/29/18 [History Confirmed 09/29/18] Fluticasone Propion/Salmeterol [Wixela 100-50 Inhub] 1 each INH BID 09/29/18 [ History Confirmed 09/29/18] Gabapentin CAP(*) [Neurontin 100 mg CAP(*)] 200 mg PO 1800 09/29/18 [History Confirmed 09/29/18] Ibuprofen TAB* [Advil TAB*] 200 mg PO 0300 PRN 09/29/18 [History Confirmed 09/29] Melatonin 10 mg PO BEDTIME 09/29/18 [History Confirmed 09/29/18] Omeprazole CAP (NF) [Prilosec CAP* 20 MG] 20 mg PO DAILY 09/29/18 [History Confirmed 09/29/18] Sertraline* [Zoloft*] 100 mg PO 1200 09/29/18 [History Confirmed 09/29/18] amLODIPine TAB* [Norvasc 5 mg TAB*] 2.5 mg PO 0900 09/29/18 [History Confirmed 09/29/18] PMH/Surg Hx/FS Hx/Imm Hx Previously Healthy: Yes Endocrine History: Dyslipidemia Cardiovascular History: Hypertension Neurological History: Other - Parkinsons - Surgical History Surgical History: Yes Surgery Procedure, Year, and Place: tubal ligation, b/l cataracts. tonsillectomy; cardiac stent. vaginal hysterectomy 01/24/15 crm. trigger finger 2010 syr - Family History Known Family History: Positive: Hypertension - Social History Alcohol Use: None Substance Use Type: None Smoking Status (MU): Never Smoked Tobacco - Immunization History Most Recent Tetanus Shot: 2012 Review of Systems All Other Systems Reviewed And Are Negative: Yes Constitutional: Positive: Negative Skin: Positive: Other - see above Eyes: Positive: Negative ENT: Positive: Negative Respiratory: Positive: Negative Cardiovascular: Positive: Negative Gastrointestinal: Positive: Negative Genitourinary: Positive: Negative Motor: Positive: Decreased ROM Neurovascular: Positive: Negative Musculoskeletal: Positive: Negative Neurological: Positive: Negative Psychological: Positive: Negative Is Patient Immunocompromised?: No Physical Exam Triage Information Reviewed: Yes Appearance: Well-Appearing, No Pain Distress, Well-Nourished - anxious Vital Signs: Initial Vital Signs Temp 98 F 09/29/18 20:33 Pulse 90 09/29/18 20:33 Resp 16 09/29/18 20:33 BP 152/91 09/29/18 20:33 Pulse Ox 98 09/29/18 20:33 Eye Exam: Normal Neck exam: Normal Respiratory Exam: Normal Respiratory: Positive: Lungs clear, Normal breath sounds, No respiratory distress, No accessory muscle use Cardiovascular Exam: Normal Cardiovascular: Positive: RRR Musculoskeletal: Positive: Other: - left extesor index finger with nicely healing wound. sutures intact,. there is mild erythema only on extensor finger w / mild slwelling. no dc. no streaks. no fluctuance. no dc. cool to touch. CR brisk. sensation intact. Neurological Exam: Normal Psychological Exam: Normal Skin: Positive: Other - see above Course/Dx - Course Course Of Treatment: Only mild infection. no abscess. not indurated. no I&D indicated. no fevers. no dc. -1st dose keflex here. treat for 10 days 500mgs TID. -f.u at [facility] as directed below. - Differential Diagnoses - Skin Complaint Differential Diagnoses: Cellulitis - Diagnoses Provider Diagnosis: Cellulitis Discharge - Sign-Out/Discharge Documenting (check all that apply): Patient Departure All imaging exams completed and their final reports reviewed: No Studies - Discharge Plan Condition: Stable Disposition: HOME Prescriptions: Cephalexin CAP* [Keflex CAP*] 500 mg PO TID 10 Days #29 cap Patient Education Materials: Cellulitis (ED) Referrals: Alen Berumen DO [Primary Care Provider] - Additional Instructions: Make sure to take a probiotic daily while on antibiotics to help prevent a potential complication of antibiotic use called c diff. Some well known brands that can be found OTC are florastor, align and [employer]. Make sure to complete the entire prescription unless advised otherwise by your health care provider. -Call Dr Levine' office for follow up sooner than your 10/05/18 appt if your symptoms worsen. You can also go to [facility]'s after hours over the weekend as well - Billing Disposition and Condition Condition: STABLE Disposition: Home
== END 2018-09-29 21:06 | disposition home or self-care (01) ==
LOC: UCCORT 20:23
DX: L03.012 Cellulitis of left finger (principal); I10 Essential (primary) hypertension; E78.5 Hyperlipidemia, unspecified; Z79.82 Long term (current) use of aspirin; Z79.899 Other long term (current) drug therapy
CPT/HCPCS: 99212; A9270-GY; G0463

== ENCOUNTER 2019-01-13 16:46 | Emergency (ER) | payer MEDICARE, BC ==
[2019-01-13 17:19] VITALS: BP 110/65
--- NOTE | 2019-01-13 17:31 | UC ---
UC General HPI - HPI Summary HPI Summary: pt noted an area of irritation on the back of her L lower leg. today, the site looked like a bullseye and pt is worried about lyme disease. no known hx of tick bite. - History of Current Complaint Stated Complaint: TICK BITE Time Seen by Provider: 01/13/19 17:15 Hx Obtained From: Patient Hx Last Menstrual Period: n/a Pain Intensity: 0 - Allergy/Home Medications Allergies/Adverse Reactions: Allergies Allergy/AdvReac Type Severity Reaction Status Date / Time walnut AdvReac Rash Verified 01/13/19 17:20 PMH/Surg Hx/FS Hx/Imm Hx - Additional Past Medical History Additional PMH: Parkinson's disease Endocrine History: Dyslipidemia Cardiovascular History: Hypertension GI/ History: Gastroesophageal Reflux - Surgical History Surgical History: Yes Surgery Procedure, Year, and Place: tubal ligation, b/l cataracts. tonsillectomy; cardiac stent. vaginal hysterectomy 01/24/15 crm. trigger finger 2011 syr. left hand surgery, silicone rings placed - Family History Known Family History: Positive: Hypertension - Social History Alcohol Use: None Substance Use Type: None Smoking Status (MU): Never Smoked Tobacco - Immunization History Most Recent Tetanus Shot: 10/31/12 Review of Systems All Other Systems Reviewed And Are Negative: No Constitutional: Negative: Fever, Chills Skin: Positive: Rash Musculoskeletal: Negative: Edema Physical Exam Triage Information Reviewed: Yes Appearance: Well-Appearing Vital Signs: Initial Vital Signs Temp 99.6 F 01/13/19 17:13 Pulse 92 01/13/19 17:13 Resp 18 01/13/19 17:13 BP 110/65 01/13/19 17:13 Pulse Ox 97 01/13/19 17:13 Vital Signs Reviewed: Yes Musculoskeletal: Positive: Other: - LLE: back of lower leg has an abrasion with a surrounding circular-purple bruise. no erythema, warmth, swelling or streaking. Neurological: Positive: Alert Psychological: Positive: Age Appropriate Behavior Skin Exam: Normal Course/Dx - Diagnoses Provider Diagnosis: Abrasion of leg Discharge ED - Sign-Out/Discharge Documenting (check all that apply): Patient Departure All imaging exams completed and their final reports reviewed: No Studies - Discharge Plan Condition: Stable Disposition: HOME Patient Education Materials: Abrasion (ED) Referrals: Breumen DO,Alen Lo [Primary Care Provider] - If Needed - Billing Disposition and Condition Condition: STABLE Disposition: Home - Attestation Statements Provider Attestation: Per institutional requirements, I have reviewed the chart, however, I was not consulted specifically or made aware of this patient by the midlevel provider. I did not personally evaluate, interact with , or disposition this patient.
== END 2019-01-13 17:36 | disposition home or self-care (01) ==
LOC: UCCORT 16:46
DX: S80.812A Abrasion, left lower leg, initial encounter (principal); X58.XXXA Exposure to other specified factors, initial encounter; Y92.9 Unspecified place or not applicable; I10 Essential (primary) hypertension; G20 Parkinson's disease; Z95.5 Presence of coronary angioplasty implant and graft; Z91.018 Allergy to other foods
CPT/HCPCS: 99212; G0463